=== PATIENT | male | born 1980 | race Caucasian/White ===

== ENCOUNTER 2016-11-04 11:28 | Emergency (ER) | payer MEDICAID ==
[2016-11-04 11:47] VITALS: BP 142/100
[2016-11-04] MEDS ORDERED: IBUPROFEN 400 MG TABLET PO STA (13:36)
[2016-11-04] MEDS ORDERED: HYDROcod/ACETAM 5/325 MG TABLET PO STA (13:36)
[2016-11-04] MEDS ORDERED: IBUPROFEN 400 MG TABLET PO ONE (13:45)
[2016-11-04] MEDS ORDERED: HYDROcod/ACETAM 5/325 MG TABLET ONE (13:45)
--- NOTE | 2016-11-04 13:47 | ED Physician Documentation ---
History of Present Illness - Stated complaint Stated Complaint: MOUTH PX - Chief complaint Chief Complaint: Heent - Additonal information Additional information: hx from pt dental decay seen by ER at [place] and also by dentist and due to have removal next week pain is severe he is on pencillin out of [place] topical anesthetic not helping states no dm or immunocompromise Review of Systems Constitutional: denies: Fever Throat: reports: Dental pain / toothache Immunocompromised: denies: Immunocompromised PD PAST MEDICAL HISTORY - Past Medical History Past Medical History: No - Past Surgical History Past Surgical History: No - Present Medications Home Medications: Ambulatory Orders Medication Instructions Recorded Confirmed HYDROcod/ACETAM 5/325 [[place] 5/325] 1 ea PO Q6H PRN #15 tablet 11/04/16 Ibuprofen [Motrin] 400 mg PO Q6H PRN #30 tablet 11/04/16 Penicillin Vk 500 mg PO Q6H 11/04/16 11/04/16 - Allergies Allergies/Adverse Reactions: Allergies Allergy/AdvReac Type Severity Reaction Status Date / Time No Known Drug Allergies Allergy Verified 11/04/16 11:47 - Social History Does the pt smoke?: Yes Smoking Status: Current every day smoker PD ED PE NORMAL - Vitals Vital signs reviewed: Yes - HEENT HEENT: Other (severe dental decay, upper premolar on R very TTP wih surrounding gum erythema, no trismus or mouth swelling ) - Cardiac Cardiac: RRR, No murmur - Respiratory Respiratory: No respiratory distress Results - Vitals Vitals: Vital Signs - 24 hr 11/04/16 11:45 Temperature 37.0 C Heart Rate 90 Respiratory 18 Rate Blood Pressure 142/100 H O2 Saturation 98 Oxygen O2 Source Room air PD MEDICAL DECISION MAKING - ED course ED course: no FRANCISCO or [facility] flags Departure - Departure Disposition: Home, Self Care Clinical Impression: Pain due to dental caries Condition: Good Instructions: ED Tooth Pain Prescriptions: Ibuprofen [Motrin] 400 mg PO Q6H PRN #30 tablet PRN Reason: Pain HYDROcod/ACETAM 5/325 [[place] 5/325] 1 ea PO Q6H PRN #15 tablet PRN Reason: Severe Pain Comments: I have prescribed 3-4 days of vicodin as well as motrin Continue the penicillin Follow up with the dentist Saturday for removal as planned Please get your blood pressure rechecked when you are not in so much pain
== END 2016-11-04 13:57 | disposition home or self-care (01) ==
LOC: ED 11:28
DX: K02.9 Dental caries, unspecified (principal); K08.89 Other specified disorders of teeth and supporting structures; F17.200 Nicotine dependence, unspecified, uncomplicated
CPT/HCPCS: 99283; A9270

== ENCOUNTER 2017-11-28 09:09 | Emergency (ER) | payer MEDICAID ==
[2017-11-28] MEDS ORDERED: IBUPROFEN 800 MG TABLET PO STA (10:12)
--- NOTE | 2017-11-28 10:50 | CT Report ---
Reason: pain with ROM, denies trauma for 2 weeks Procedure Date: 11/28/2017 Accession Number: [id number] / [id number] Procedure: CT - Cervical Spine W/O CPT Code: FULL RESULT: EXAM: CT CERVICAL SPINE WITHOUT CONTRAST DATE: 11/28/2017 10:43 AM. HISTORY: Pain with range of motion, denies trauma for 2 weeks. COMPARISONS: None. TECHNIQUE: Thin-section axial images were acquired of the cervical spine without contrast. Post-processing: Coronal and sagittal reformats. Other: None. In accordance with CT protocol optimization, one or more of the following dose reduction techniques were utilized for this exam: automated exposure control, adjustment of mA and/or KV based on patient size, or use of iterative reconstructive technique. FINDINGS: Alignment: No scoliosis or spondylolisthesis. Bones: No fracture or bone lesion. Interspace Levels/Facets: C1-C2: Unremarkable. C2-C3: Unremarkable. C3-C4: Unremarkable. C4-C5: Unremarkable. C5-C6: Unremarkable. C6-C7: Unremarkable. C7-T1: Unremarkable. Musculature: Normal. No fatty atrophy. Other: The paravertebral and prevertebral soft tissues are unremarkable. Apical emphysematous changes are seen, right greater than left. IMPRESSION: Cervical spine is negative for an acute osseous injury. RADIA
--- NOTE | 2017-11-28 11:17 | ED Physician Documentation ---
History of Present Illness - Stated complaint Stated Complaint: NECK PX - Chief complaint Chief Complaint: General - History obtained from History obtained from: Patient - History of Present Illness Timing: How many weeks ago (2) Pain level max: 8 Pain level now: 8 Quality: stabbing, sharp Radiates to: left side of neck to shoulder then arm Improved by: lidocaine patch, rest Worsened by: moving, lifting - Treatment prior to arrival Treatment prior to arrival: otc tylenol, motrin, lidocaine patch - Additonal information Additional information: Pt stated woke up 2 weeks ago with a neck pain sidebent to the left. Denies any trauma or injury. However, pt has been fixing a house and deck the past month; had been painting too. Denies any fever, headache, weakness, dizziness, chest pain, SOB or numbness. Pt stated at certain positions of neck and left shoulder pain is increased. Took OTC tylenol, motrin and lidocaine patch without improvement. Stated tried to get an appointment at the clinic but there's no opening till December so they suggested going to the E.R. Pt is right hand dominant. Review of Systems Ten Systems: 10 systems reviewed and negative Constitutional: denies: Fever, Chills, Myalgias Nose: denies: Rhinorrhea / runny nose, Congestion Throat: denies: Sore throat Cardiac: denies: Chest pain / pressure Respiratory: denies: Dyspnea Musculoskeletal: reports: Neck pain. denies: Back pain, Extremity pain Neurologic: denies: Generalized weakness, Focal weakness, Numbness, Difficulty speaking, Headache, Head injury PD PAST MEDICAL HISTORY - Past Medical History Past Medical History: No - Past Surgical History Past Surgical History: No - Present Medications Home Medications: Ambulatory Orders Medication Instructions Recorded Confirmed Ibuprofen [Motrin] 400 mg PO Q6H PRN #30 tablet 11/04/16 RX: HYDROcod/ACETAM 5/325 [[place] 1 ea PO Q6H PRN #15 tablet 11/04/16 5/325] RX: Penicillin Vk 500 mg PO Q6H 11/04/16 11/04/16 Cyclobenzaprine [Flexeril] 10 mg PO TID PRN #20 tablet 11/28/17 Hydrocodone/Acetaminophen 1 each PO Q6H PRN #14 tablet 11/28/17 [Hydrocodon-Acetaminophen 5-325] Ibuprofen [Motrin] 800 mg PO Q8H PRN #30 tablet 11/28/17 - Allergies Allergies/Adverse Reactions: Allergies Allergy/AdvReac Type Severity Reaction Status Date / Time No Known Drug Allergies Allergy Verified 11/28/17 09:16 - Social History Does the pt smoke?: Yes Smoking Status: Current every day smoker PD ED PE NORMAL - Vitals Vital signs reviewed: Yes - General General: Alert and oriented X 3, No acute distress, Well developed/nourished - HEENT HEENT: PERRL, EOMI, Moist mucous membranes - Neck Neck: Supple, no meningeal sign, No bony TTP, No adenopathy, Other (Pt's neck slightly turned towards the left. Limited ROM due to discomfort. No swelling, mass, erythema. Tenderness to palpation of cervical PVM and trapezius muscles.) - Cardiac Cardiac: RRR, No murmur, Strong equal pulses - Respiratory Respiratory: No respiratory distress, Clear bilaterally - Abdomen Abdomen: Normal bowel sounds, Soft, Non tender, Non distended - Derm Derm: Normal color, Warm and dry, No rash - Extremities Extremities: No deformity - Neuro Neuro: Alert and oriented X 3, No motor deficit, No sensory deficit, Normal speech - Psych Psych: Normal mood, Normal affect Results - Vitals Vitals: Vital Signs - 24 hr 11/28/17 09:14 Temperature 35.7 C L Heart Rate 107 H Respiratory 16 Rate Blood Pressure 147/111 H O2 Saturation 100 Oxygen O2 Source Room air - Rads (name of study) ct c/spine Radiology: See rad report PD MEDICAL DECISION MAKING - ED course Complexity details: reviewed results, re-evaluated patient, d/w patient (Pt's pain decreased but still hurts when he turns his head. Informed of CT c/spine results. Discussed outpt treatment plans of: motrin, flexeril, hydrocodone. He needs to follow up w/ ortho clinic for reevaluation and possibly MRI. Pt expressed understanding.) Departure - Departure Disposition: 01 Home, Self Care Clinical Impression: Acute pain, Torticollis, acute Condition: Good Prescriptions: Cyclobenzaprine [Flexeril] 10 mg PO TID PRN #20 tablet PRN Reason: Spasms Hydrocodone/Acetaminophen [Hydrocodon-Acetaminophen 5-325] 1 each PO Q6H PRN #14 tablet PRN Reason: pain Ibuprofen [Motrin] 800 mg PO Q8H PRN #30 tablet PRN Reason: PAIN &/OR FEVER Comments: MAINTAIN SAFETY WHILE TAKING HYDROCODONE AND FLEXERIL. OTC STOOL SOFTENER, DRINK LOTS OF WATER, EAT HIGH FIBER FOODS TO PREVENT CONSTIPATION FROM HYDROCODONE. TAKE MOTRIN WITH FOOD. AVOID HEAVY LIFTING. FOLLOW UP W/ YOUR CLINIC FOR REE VALUATION AND REFERRAL TO AN ORTHOPEDIC DOCTOR. IF WORSE RETURN TO THE E.R. Discharge Date/Time: 11/28/17 11:33
[2017-11-28 11:33] VITALS: BP 151/91
== END 2017-11-28 11:33 | disposition home or self-care (01) ==
LOC: ED 09:09
DX: M43.6 Torticollis (principal); F17.200 Nicotine dependence, unspecified, uncomplicated
CPT/HCPCS: 72125; 99283; A9270